=== PATIENT | male | born 1990 | race Caucasian/White ===

== ENCOUNTER 2019-10-13 00:20 | Emergency (ER) | payer OTHER ==
[~2019-10-13] VITALS: Ht 190.5 cm; Wt 86.4 kg
[2019-10-13] MEDS ORDERED: ACETAMINOPHEN 500 MG TABLET PO ONE (01:00)
[2019-10-13] MEDS ORDERED: HALOPERIDOL LACTATE 5 MG/ML VIAL IM ONE (01:00)
[2019-10-13] MEDS ORDERED: LORazepam 2 MG/ML VIAL IM ONE (01:00)
[2019-10-13 01:41] LABS: BASOPHILS % (AUTO) 0.3 % (0.0-2.0); EOSINOPHILS % (AUTO) 2.6 % (1.0-6.0); HEMATOCRIT 38.7 % (41-53); HEMOGLOBIN 13.3 g/dL (13.5-17.5); LYMPHOCYTES % (AUTO) 28.3 % (22.0-44.0); MEAN CORPUSCULAR HEMOGLOBIN 31.2 pg (26.0-34.0); MEAN CORPUSCULAR HGB CONC 34.3 G/dL (31.0-37.0); MEAN CORPUSCULAR VOLUME 91 fL (80-100); MONOCYTES % (AUTO) 14.5 % (2.0-9.0); NEUTROPHILS # (AUTO) 3.8 K/uL (1.8-7.7); NEUTROPHILS % (AUTO) 54.3 % (40.0-70.0); PLATELET COUNT (AUTO) 257 K/uL (150-450); RED BLOOD CELL COUNT(AUTO) 4.26 MIL/uL (4.50-5.90); RED CELL DISTRIBUTION WIDTH 12.9 % (11.5-14.5)
[2019-10-13 01:46] LABS: ANION GAP 13 mmol/L (8-16); CALCIUM, TOTAL 9.2 mg/dL (8.8-10.5); CARBON DIOXIDE 27 mmol/L (22-29); CHLORIDE 101 mmol/L (98-107); CREATININE 0.88 mg/dL (0.60-1.30); GLUCOSE,RANDOM 92 mg/dL (70-110); SODIUM SERUM 141 mmol/L (136-145); UREA NITROGEN, BLOOD 24 mg/dL (7-18)
[2019-10-13 01:49] LABS: GLOMERULAR FILTR. RATE CALC > 60 mL/min (>60)
[2019-10-13 01:53] LABS: ALANINE AMINOTRANSFERASE 57 U/L (12-78); ALBUMIN 4.3 g/dL (3.4-5.0); ALKALINE PHOSPHATASE 43 U/L (46-116); ASPARTATE AMINOTRANSFERASE 46 U/L (15-37); BILIRUBIN,TOTAL 1.4 mg/dL (0.1-1.0); TOTAL PROTEIN, SERUM 7.7 g/dL (6.4-8.2)
[2019-10-13 05:55] VITALS: BP 121/69
== END 2019-10-13 06:14 | disposition home or self-care (01) ==
LOC: EDBD 00:20 → EMS 00:20
DX: L55.9 Sunburn, unspecified (principal); F69 Unspecified disorder of adult personality and behavior; F15.10 Other stimulant abuse, uncomplicated
CPT/HCPCS: 36415; 80053; 85025; 96372; 99284; G0480; J1630; J2060

== ENCOUNTER 2019-10-13 08:08 | Emergency (ER) | payer OTHER ==
[~2019-10-13] VITALS: Ht 177.8 cm; Wt 77.3 kg
[2019-10-13 11:14] VITALS: BP 118/74
== END 2019-10-13 11:25 | disposition home or self-care (01) ==
LOC: EMS 08:11
DX: F41.9 Anxiety disorder, unspecified (principal); F17.210 Nicotine dependence, cigarettes, uncomplicated; F19.10 Other psychoactive substance abuse, uncomplicated
CPT/HCPCS: 99406

== ENCOUNTER 2021-10-05 09:33 | Inpatient (IN) | payer MEDICAID ==
[~2021-10-05] VITALS: Ht 188 cm; Wt 87.5 kg
[2021-10-05] MEDS ORDERED: LORazepam 2 MG TABLET PO PRN (10:30)
[2021-10-05] MEDS ORDERED: ZOLPIDEM TARTRATE 10 MG TABLET PO PRN (10:30)
[2021-10-05 13:00] VITALS: BP 106/78
[2021-10-05 16:10] VITALS: BP 110/68
[2021-10-05] MEDS: HALOPERIDOL 5 MG TABLET PO PRN (16:34)
[2021-10-06 00:30] VITALS: BP 112/67
[2021-10-06] MEDS: METHADONE HCL 10 MG TABLET PO SCH (08:47)
[2021-10-06 08:52] VITALS: BP 108/67
[2021-10-06] MEDS: HALOPERIDOL 5 MG TABLET PO PRN (13:44)
[2021-10-06 16:04] VITALS: BP 113/64
[2021-10-06] MEDS ORDERED: QUEtiapine FUMARATE 300 MG TABLET PO SCH (21:00)
[2021-10-06] MEDS ORDERED: DOCUSATE SODIUM 100 MG CAPSULE PO PRN (21:45)
[2021-10-06] MEDS ORDERED: CloNIDine HCL 0.1 MG TABLET PO PRN (21:45)
[2021-10-06] MEDS ORDERED: IBUPROFEN 600 MG TABLET PO PRN (21:45)
[2021-10-06] MEDS ORDERED: LOPERAMIDE HCL 2 MG CAPSULE PO PRN (21:45)
[2021-10-06] MEDS ORDERED: ONDANSETRON HCL 4 MG TABLET PO PRN (21:45)
[2021-10-06] MEDS ORDERED: PETROLATUM,WHITE 28 GM JELLY TP PRN (21:45)
[2021-10-06] MEDS ORDERED: MAGNESIUM HYDROXIDE SUSPENSION 30 ML UDCUP PO PRN (21:45)
[2021-10-06] MEDS ORDERED: BENZOCAINE/MENTHOL LOZENGE PO PRN (21:45)
[2021-10-06] MEDS ORDERED: BACITRACIN 28 GM OINTMENT TP PRN (21:45)
[2021-10-06] MEDS ORDERED: OMEPRAZOLE 20 MG CAPSULE PO PRN (21:45)
[2021-10-06] MEDS ORDERED: MAG HYDROX/AL HYDROX/SIMETH ES 30 ML SUSPENSION UDCUP PO PRN (21:45)
[2021-10-06] MEDS ORDERED: ACETAMINOPHEN 325 MG TABLET PO PRN (21:45)
[2021-10-06] MEDS ORDERED: ALBUTEROL SULFATE HFA 90 MCG/PUFF 8 GM INHALER IH PRN (21:45)
[2021-10-07 02:19] VITALS: BP 118/69
[2021-10-07] MEDS: METHADONE HCL 10 MG TABLET PO SCH (08:20)
[2021-10-07] MEDS: VENLAFAXINE HCL 75 MG ER CAPSULE PO SCH (08:20)
[2021-10-07 08:32] VITALS: BP 120/77
[2021-10-07] MEDS: HydrOXYzine PAMOATE 25 MG CAPSULE PO PRN (10:15)
[2021-10-07] MEDS: HALOPERIDOL 5 MG TABLET PO PRN (12:15)
[2021-10-07 16:29] VITALS: BP 105/64
[2021-10-07] MEDS: QUEtiapine FUMARATE 200 MG TABLET PO SCH (20:41)
[2021-10-08 01:14] VITALS: BP 101/67
[2021-10-08 07:32] LABS: APPEARANCE,URINE CLEAR (CLEAR); BILIRUBIN,URINE NEGATIVE (NEGATIVE); GLUCOSE, URINE (UA) NEGATIVE (NEGATIVE); KETONES,URINE NEGATIVE (NEGATIVE); LEUKOCYTE ESTERASE ,URINE NEGATIVE (NEGATIVE); NITRATE,URINE NEGATIVE (NEGATIVE); OCCULT BLOOD,URINE NEGATIVE (NEGATIVE); PH,URINE 6.5 (5.0-8.0); PROTEIN,URINE NEGATIVE (NEGATIVE); SPECIFIC GRAVITIY, URINE 1.009 (1.003-1.030); UROBILINOGEN,URINE <=1.0 mg/dL (<=1.0)
[2021-10-08 07:34] LABS: AMPHET/METH SCREEN,URINE NEGATIVE (NEGATIVE); BARBITURATE SCREEN, URINE NEGATIVE (NEGATIVE); BENZODIAZEPINES SCREEN,URINE NEGATIVE (NEGATIVE); CANNABINOID SCREEN,URINE POSITIVE (NEGATIVE); COCAINE SCREEN,URINE NEGATIVE (NEGATIVE); METHADONE SCREEN, URINE POSITIVE (NEGATIVE); OPIATE SCREEN,URINE NEGATIVE (NEGATIVE)
[2021-10-08 07:44] LABS: PHENCYCLIDINE SCREEN,URINE NEGATIVE (NEGATIVE)
[2021-10-08] MEDS: METHADONE HCL 10 MG TABLET PO SCH (08:29)
[2021-10-08] MEDS: VENLAFAXINE HCL 75 MG ER CAPSULE PO SCH (08:29)
[2021-10-08 08:42] VITALS: BP 115/86
[2021-10-08] MEDS: HydrOXYzine PAMOATE 25 MG CAPSULE PO PRN (10:16)
[2021-10-08] MEDS: HALOPERIDOL 5 MG TABLET PO PRN (16:42)
[2021-10-08] MEDS: QUEtiapine FUMARATE 200 MG TABLET PO SCH (20:31)
[2021-10-09 00:15] VITALS: BP 116/82
[2021-10-09 10:00] VITALS: BP 108/64
[2021-10-09] MEDS: VENLAFAXINE HCL 75 MG ER CAPSULE PO SCH (10:04)
[2021-10-09] MEDS: METHADONE HCL 10 MG TABLET PO SCH (10:04)
[2021-10-09 16:37] VITALS: BP 123/69
[2021-10-09] MEDS: HydrOXYzine PAMOATE 25 MG CAPSULE PO PRN (17:06)
[2021-10-09] MEDS: QUEtiapine FUMARATE 200 MG TABLET PO SCH (20:26)
[2021-10-10 01:11] VITALS: BP 121/72
[2021-10-10 08:22] VITALS: BP 124/79
[2021-10-10] MEDS: METHADONE HCL 10 MG TABLET PO SCH (09:00)
[2021-10-10] MEDS: VENLAFAXINE HCL 75 MG ER CAPSULE PO SCH (09:01)
[2021-10-10] MEDS ORDERED: VENL-67 PO (10:52)
[2021-10-10] MEDS ORDERED: QUET200T PO (10:52)
== END 2021-10-10 13:35 | disposition home or self-care (01) | DRG 750 ==
LOC: B2S 12:04
PROVIDERS: ADMIT Psychiatry & Neurology Psychiatry; ATTEND Psychiatry & Neurology Psychiatry
DX: F25.9 Schizoaffective disorder, unspecified (principal); F11.20 Opioid dependence, uncomplicated; F32.A Depression, unspecified; F41.9 Anxiety disorder, unspecified; G47.00 Insomnia, unspecified; K59.00 Constipation, unspecified; Z71.6 Tobacco abuse counseling; Z88.5 Allergy status to narcotic agent
CPT/HCPCS: 80307; 81003

== ENCOUNTER 2021-12-18 18:17 | Inpatient (IN) | payer MEDICAID ==
[~2021-12-18] VITALS: Ht 188 cm; Wt 82.4 kg
[~2021-12-18 18:17] MED LIST: QUET200T PO; VENL-67 PO
[2021-12-19 00:01] VITALS: BP 149/81
[2021-12-19] MEDS ORDERED: DOCUSATE SODIUM 100 MG CAPSULE PO PRN (07:00)
[2021-12-19] MEDS ORDERED: ALBUTEROL SULFATE HFA 90 MCG/PUFF 8 GM INHALER IH PRN (07:00)
[2021-12-19] MEDS ORDERED: ONDANSETRON HCL 4 MG TABLET PO PRN (07:00)
[2021-12-19] MEDS ORDERED: NICOTINE 14 MG/24 HOUR PATCH TD PRN (07:00)
[2021-12-19] MEDS ORDERED: IBUPROFEN 400 MG TABLET PO PRN (07:00)
[2021-12-19] MEDS ORDERED: CloNIDine HCL 0.1 MG TABLET PO PRN (07:00)
[2021-12-19] MEDS ORDERED: GuaiFENesin/D-METHORPHAN [SUGAR-FREE] 200-20MG/10 ML SYRUP UDCUP PO PRN (07:00)
[2021-12-19] MEDS ORDERED: PETROLATUM,WHITE 28 GM JELLY TP PRN (07:00)
[2021-12-19] MEDS ORDERED: MAG HYDROX/AL HYDROX/SIMETH ES 30 ML SUSPENSION UDCUP PO PRN (07:00)
[2021-12-19] MEDS ORDERED: LOPERAMIDE HCL 2 MG CAPSULE PO PRN (07:00)
[2021-12-19] MEDS ORDERED: MAGNESIUM HYDROXIDE SUSPENSION 30 ML UDCUP PO PRN (07:00)
[2021-12-19] MEDS ORDERED: ACETAMINOPHEN 325 MG TABLET PO PRN (07:00)
[2021-12-19] MEDS: SERTRALINE HCL 50 MG TABLET PO SCH (11:16)
[2021-12-19 11:23] VITALS: BP 142/77
[2021-12-19] MEDS: LORazepam 2 MG TABLET PO PRN ×2 (11:24→15:59)
[2021-12-19 11:25] VITALS: BP 142/77
[2021-12-19] MEDS: CEPHALEXIN MONOHYDRATE 500 MG CAPSULE PO SCH ×2 (13:47→17:16)
[2021-12-19] MEDS: SULFAMETHOX/TRIMETH DS 800-160 MG/TABLET PO SCH (17:16)
[2021-12-19] MEDS: LURASIDONE HCL 40 MG TABLET PO SCH (17:16)
[2021-12-19] MEDS: NEOMYCIN/BACITRACIN/POLYMYXIN B 30 GM OINTMENT TP SCH (17:17)
[2021-12-19 20:07] VITALS: BP 138/83
[2021-12-20] MEDS: LORazepam 2 MG TABLET PO PRN ×4 (03:48→17:49)
[2021-12-20 03:51] VITALS: BP 127/76
[2021-12-20] MEDS: LURASIDONE HCL 40 MG TABLET PO SCH ×2 (06:13→16:33)
[2021-12-20] MEDS: SERTRALINE HCL 50 MG TABLET PO SCH (08:02)
[2021-12-20] MEDS: SULFAMETHOX/TRIMETH DS 800-160 MG/TABLET PO SCH ×2 (08:02→16:33)
[2021-12-20] MEDS: NEOMYCIN/BACITRACIN/POLYMYXIN B 30 GM OINTMENT TP SCH ×2 (08:02→16:34)
[2021-12-20] MEDS: CEPHALEXIN MONOHYDRATE 500 MG CAPSULE PO SCH ×3 (08:02→16:33)
[2021-12-20 08:30] VITALS: BP 107/70
[2021-12-20 10:09] LABS: BASOPHILS % (AUTO) 0.3 % (0.0-2.0); EOSINOPHILS % (AUTO) 2.2 % (1.0-6.0); HEMATOCRIT 40.7 % (41-53); HEMOGLOBIN 13.8 g/dL (13.5-17.5); LYMPHOCYTES # (AUTO) 1.7 K/uL (1.0-4.8); LYMPHOCYTES % (AUTO) 27.3 % (22.0-44.0); MEAN CORPUSCULAR HGB CONC 33.9 G/dL (31.0-37.0); MEAN CORPUSCULAR VOLUME 92 fL (80-100); MONOCYTES # (AUTO) 0.5 K/uL (0.1-1.0); MONOCYTES % (AUTO) 8.6 % (2.0-9.0); NEUTROPHILS # (AUTO) 3.9 K/uL (1.8-7.7); NEUTROPHILS % (AUTO) 61.6 % (40.0-70.0); PLATELET COUNT (AUTO) 332 K/uL (150-450); RED BLOOD CELL COUNT(AUTO) 4.44 MIL/uL (4.50-5.90); RED CELL DISTRIBUTION WIDTH 13.8 % (11.5-14.5)
[2021-12-20 10:50] LABS: ALANINE AMINOTRANSFERASE 33 U/L (12-78); ALKALINE PHOSPHATASE 56 U/L (46-116); ANION GAP 5 mmol/L (8-16); ASPARTATE AMINOTRANSFERASE 15 U/L (15-37); BILIRUBIN,TOTAL 0.2 mg/dL (0.1-1.0); CALCIUM, TOTAL 8.8 mg/dL (8.8-10.5); CARBON DIOXIDE 30 mmol/L (22-29); CHLORIDE 104 mmol/L (98-107); CHOL/HDL RATIO 3.1 (4.2-7.3); CHOLESTEROL 120 mg/dL (131-200); FREE T4 (FREE THYROXINE) 1.35 ng/dL (0.76-1.46); GLUCOSE,RANDOM 72 mg/dL (70-110); HDL CHOLESTEROL 39 mg/dL (40-60); LDL CHOL (CALC.) 62 mg/dL (0-130); POTASSIUM 4.2 mmol/L (3.5-5.1); SODIUM SERUM 139 mmol/L (136-145); THYROID STIMULATING HORMONE 0.44 uIU/mL (0.36-3.74); TOTAL PROTEIN, SERUM 6.7 g/dL (6.4-8.2); TRIGLYCERIDES 93 mg/dL (15-150); UREA NITROGEN, BLOOD 10 mg/dL (7-18)
[2021-12-20 10:53] LABS: GLOMERULAR FILTR. RATE CALC > 60 mL/min (>60)
[2021-12-20 12:33] LABS: HEMOGLOBIN A1C 5.1 % (3.8-5.6)
[2021-12-20 21:22] VITALS: BP 123/72
[2021-12-21 01:37] VITALS: BP 118/72
[2021-12-21] MEDS: ZOLPIDEM TARTRATE 10 MG TABLET PO PRN ×2 (01:39→23:49)
[2021-12-21] MEDS: LURASIDONE HCL 40 MG TABLET PO SCH ×2 (05:56→16:43)
[2021-12-21 08:23] VITALS: BP 117/76
[2021-12-21] MEDS: SERTRALINE HCL 50 MG TABLET PO SCH (08:28)
[2021-12-21] MEDS: SULFAMETHOX/TRIMETH DS 800-160 MG/TABLET PO SCH ×2 (08:28→16:43)
[2021-12-21] MEDS: CEPHALEXIN MONOHYDRATE 500 MG CAPSULE PO SCH ×3 (08:28→16:43)
[2021-12-21] MEDS: LORazepam 2 MG TABLET PO PRN ×2 (08:29→15:22)
[2021-12-21] MEDS: NEOMYCIN/BACITRACIN/POLYMYXIN B 30 GM OINTMENT TP SCH ×2 (08:29→16:43)
[2021-12-21] MEDS: HALOPERIDOL 5 MG TABLET PO PRN (19:06)
[2021-12-21 20:12] VITALS: BP 109/65
[2021-12-22] VITALS: BP 114/82
[2021-12-22] MEDS: LURASIDONE HCL 40 MG TABLET PO SCH ×2 (06:14→17:03)
[2021-12-22] MEDS: LORazepam 2 MG TABLET PO PRN ×3 (06:35→17:09)
[2021-12-22 06:38] VITALS: BP 112/86
[2021-12-22 08:12] VITALS: BP 114/69
[2021-12-22] MEDS: CEPHALEXIN MONOHYDRATE 500 MG CAPSULE PO SCH ×3 (08:35→17:03)
[2021-12-22] MEDS: SULFAMETHOX/TRIMETH DS 800-160 MG/TABLET PO SCH ×2 (08:35→17:03)
[2021-12-22] MEDS: SERTRALINE HCL 50 MG TABLET PO SCH (08:35)
[2021-12-22] MEDS: NEOMYCIN/BACITRACIN/POLYMYXIN B 30 GM OINTMENT TP SCH ×2 (08:36→17:03)
[2021-12-22] MEDS: HALOPERIDOL 5 MG TABLET PO PRN (10:56)
[2021-12-22] MEDS: VENLAFAXINE HCL 150 MG ER CAPSULE PO SCH (13:06)
[2021-12-22 17:09] VITALS: BP 121/71
[2021-12-23] MEDS: LURASIDONE HCL 40 MG TABLET PO SCH ×2 (06:31→17:05)
[2021-12-23] MEDS: SULFAMETHOX/TRIMETH DS 800-160 MG/TABLET PO SCH ×2 (08:34→17:05)
[2021-12-23] MEDS: VENLAFAXINE HCL 150 MG ER CAPSULE PO SCH (08:35)
[2021-12-23] MEDS: NEOMYCIN/BACITRACIN/POLYMYXIN B 30 GM OINTMENT TP SCH ×2 (08:35→17:06)
[2021-12-23] MEDS: CEPHALEXIN MONOHYDRATE 500 MG CAPSULE PO SCH ×3 (08:35→17:04)
[2021-12-23] MEDS: HALOPERIDOL 5 MG TABLET PO PRN ×2 (08:42→14:14)
[2021-12-23] MEDS: LORazepam 2 MG TABLET PO PRN ×2 (08:42→14:14)
[2021-12-23 08:47] VITALS: BP 112/82
[2021-12-23 11:06] LABS: GLUCOMETER DEV NAME(LOC) POC.BV
[2021-12-23] MEDS: ZOLPIDEM TARTRATE 10 MG TABLET PO PRN (20:02)
[2021-12-23 20:10] VITALS: BP 125/67
[2021-12-24] MEDS: LURASIDONE HCL 40 MG TABLET PO SCH (06:42)
[2021-12-24] MEDS: CEPHALEXIN MONOHYDRATE 500 MG CAPSULE PO SCH ×3 (08:16→16:28)
[2021-12-24] MEDS: VENLAFAXINE HCL 150 MG ER CAPSULE PO SCH (08:16)
[2021-12-24] MEDS: SULFAMETHOX/TRIMETH DS 800-160 MG/TABLET PO SCH ×2 (08:16→16:28)
[2021-12-24] MEDS: NEOMYCIN/BACITRACIN/POLYMYXIN B 30 GM OINTMENT TP SCH ×2 (08:22→16:28)
[2021-12-24 08:35] VITALS: BP 104/63
[2021-12-24] MEDS: LORazepam 2 MG TABLET PO PRN ×2 (08:48→14:18)
[2021-12-24] MEDS: QUEtiapine FUMARATE 200 MG TABLET PO SCH ×2 (10:38→20:19)
[2021-12-24 20:13] VITALS: BP 135/66
[2021-12-25 08:13] VITALS: BP 119/76
[2021-12-25] MEDS: VENLAFAXINE HCL 150 MG ER CAPSULE PO SCH (09:04)
[2021-12-25] MEDS: CEPHALEXIN MONOHYDRATE 500 MG CAPSULE PO SCH ×3 (09:04→16:39)
[2021-12-25] MEDS: NEOMYCIN/BACITRACIN/POLYMYXIN B 30 GM OINTMENT TP SCH ×2 (09:05→16:41)
[2021-12-25] MEDS: QUEtiapine FUMARATE 200 MG TABLET PO SCH ×2 (09:05→20:31)
[2021-12-25] MEDS: SULFAMETHOX/TRIMETH DS 800-160 MG/TABLET PO SCH ×2 (09:05→16:39)
[2021-12-25] MEDS: HALOPERIDOL 5 MG TABLET PO PRN (10:15)
[2021-12-25] MEDS: LORazepam 2 MG TABLET PO PRN ×2 (10:15→14:18)
[2021-12-25 20:12] VITALS: BP 104/69
[2021-12-26 08:10] VITALS: BP 113/66
[2021-12-26] MEDS: VENLAFAXINE HCL 150 MG ER CAPSULE PO SCH (08:46)
[2021-12-26] MEDS: QUEtiapine FUMARATE 200 MG TABLET PO SCH ×2 (08:46→20:28)
[2021-12-26] MEDS: CEPHALEXIN MONOHYDRATE 500 MG CAPSULE PO SCH ×3 (08:46→16:33)
[2021-12-26] MEDS: SULFAMETHOX/TRIMETH DS 800-160 MG/TABLET PO SCH ×2 (08:46→16:33)
[2021-12-26] MEDS: NEOMYCIN/BACITRACIN/POLYMYXIN B 30 GM OINTMENT TP SCH ×2 (08:47→16:35)
[2021-12-26] MEDS: LORazepam 2 MG TABLET PO PRN ×2 (10:08→14:49)
[2021-12-26] MEDS: HALOPERIDOL 5 MG TABLET PO PRN (14:49)
[2021-12-26 20:18] VITALS: BP 112/64
[2021-12-27 06:42] VITALS: BP 108/72
[2021-12-27] MEDS: LORazepam 2 MG TABLET PO PRN (06:50)
[2021-12-27 08:36] VITALS: BP 109/69
[2021-12-27] MEDS: SULFAMETHOX/TRIMETH DS 800-160 MG/TABLET PO SCH (09:07)
[2021-12-27] MEDS: CEPHALEXIN MONOHYDRATE 500 MG CAPSULE PO SCH ×2 (09:07→12:58)
[2021-12-27] MEDS: QUEtiapine FUMARATE 200 MG TABLET PO SCH (09:07)
[2021-12-27] MEDS: VENLAFAXINE HCL 150 MG ER CAPSULE PO SCH (09:07)
[2021-12-27] MEDS: NEOMYCIN/BACITRACIN/POLYMYXIN B 30 GM OINTMENT TP SCH (09:08)
[2021-12-27] MEDS ORDERED: QUET200T30 PO (11:52)
[2021-12-27] MEDS ORDERED: VENL150C4 PO (11:52)
[2021-12-27] MEDS ORDERED: QUET200T PO (12:03)
[2021-12-27] MEDS ORDERED: VENL-68 PO (12:06)
== END 2021-12-27 13:20 | disposition home or self-care (01) | DRG 750 ==
LOC: B2S 21:01
PROVIDERS: ADMIT Psychiatry & Neurology Child & Adolescent Psychiatry; ATTEND Psychiatry & Neurology Child & Adolescent Psychiatry
DX: F25.1 Schizoaffective disorder, depressive type (principal); F10.10 Alcohol abuse, uncomplicated; F12.10 Cannabis abuse, uncomplicated; F41.9 Anxiety disorder, unspecified; R03.0 Elevated blood-pressure reading, without diagnosis of hypertension; Z20.822 Contact with and (suspected) exposure to COVID-19; Z59.00 Homelessness unspecified; Z79.899 Other long term (current) drug therapy; Z88.8 Allergy status to other drugs, medicaments and biological substances
CPT/HCPCS: 80053; 80061; 83036; 84439; 84443; 85025

== ENCOUNTER 2023-06-07 00:40 | Inpatient (IN) | payer MEDICAID ==
[~2023-06-07] VITALS: Ht 188 cm; Wt 82.4 kg
[~2023-06-07 00:40] MED LIST changes: -QUET200T PO; +QUET200T30 PO; -VENL-67 PO; +VENL-68 PO; +VENL150C5 PO
[2023-06-07] MEDS ORDERED: ZOLPIDEM TARTRATE 10 MG TABLET PO PRN (03:00)
[2023-06-07 04:20] VITALS: BP 139/89; PULSE 99; RESP 20; TEMP 97.7; O2SAT 98
[2023-06-07] MEDS ORDERED: INFLUENZA VIRUS VACCINE QVS 2023-24 (6MO+)/PF 60 MCG/0.5 ML SYRINGE IM. ONE (04:45)
[2023-06-07] MEDS: LORazepam 2 MG TABLET PO PRN ×2 (07:11→16:22)
[2023-06-07] MEDS ORDERED: DOCUSATE SODIUM 100 MG CAPSULE PO PRN (07:15)
[2023-06-07] MEDS ORDERED: ONDANSETRON HCL 4 MG TABLET PO PRN (07:15)
[2023-06-07] MEDS ORDERED: IBUPROFEN 600 MG TABLET PO PRN (07:15)
[2023-06-07] MEDS ORDERED: BACITRACIN 28 GM OINTMENT TP PRN (07:15)
[2023-06-07] MEDS ORDERED: OMEPRAZOLE 20 MG CAPSULE PO PRN (07:15)
[2023-06-07] MEDS ORDERED: ACETAMINOPHEN 325 MG TABLET PO PRN (07:15)
[2023-06-07] MEDS ORDERED: MAG HYDROX/ALUMINUM HYD/SIMETH ES 30 ML SUSPENSION UDCUP PO PRN (07:15)
[2023-06-07] MEDS ORDERED: CloNIDine HCL 0.1 MG TABLET PO PRN (07:15)
[2023-06-07] MEDS ORDERED: ALBUTEROL SULFATE HFA 90 MCG/PUFF 8 GM INHALER IH PRN (07:15)
[2023-06-07] MEDS ORDERED: LOPERAMIDE HCL 2 MG CAPSULE PO PRN (07:15)
[2023-06-07] MEDS ORDERED: PETROLATUM,WHITE 28 GM JELLY TP PRN (07:15)
[2023-06-07] MEDS ORDERED: BENZOCAINE/MENTHOL LOZENGE PO PRN (07:15)
[2023-06-07] MEDS ORDERED: MAGNESIUM HYDROXIDE SUSPENSION 30 ML UDCUP PO PRN (07:15)
[2023-06-07 17:52] VITALS: BP 130/80; PULSE 90; RESP 20; TEMP 97.6; O2SAT 97
[2023-06-07] MEDS: BACITRACIN 28 GM OINTMENT TP SCH (19:14)
[2023-06-07 20:06] VITALS: RESP 17
[2023-06-07] MEDS: QUEtiapine FUMARATE 300 MG TABLET PO SCH (20:18)
[2023-06-08] MEDS: LORazepam 2 MG TABLET PO PRN ×2 (00:57→10:17)
[2023-06-08] MEDS: SULFAMETHOX/TRIMETH DS 800-160 MG/TABLET PO SCH ×2 (08:17→16:49)
[2023-06-08] MEDS: BACITRACIN 28 GM OINTMENT TP SCH ×2 (08:22→16:52)
[2023-06-08 10:22] VITALS: BP 144/98; PULSE 103; RESP 18; TEMP 98; O2SAT 98
[2023-06-08] MEDS: MAGNESIUM SULFATE 454 GM BAG TP SCH (12:29)
[2023-06-08] MEDS: HALOPERIDOL 5 MG TABLET PO PRN (13:01)
[2023-06-08] MEDS: QUEtiapine FUMARATE 300 MG TABLET PO SCH (20:10)
[2023-06-08 22:06] VITALS: BP 128/70; PULSE 75; RESP 18; TEMP 98.1; O2SAT 99
[2023-06-09 08:10] VITALS: BP 133/77; PULSE 103; RESP 17; TEMP 98.4; O2SAT 98
[2023-06-09] MEDS: SULFAMETHOX/TRIMETH DS 800-160 MG/TABLET PO SCH ×2 (08:18→16:37)
[2023-06-09] MEDS: LORazepam 2 MG TABLET PO PRN ×2 (08:19→13:38)
[2023-06-09] MEDS: MAGNESIUM SULFATE 454 GM BAG TP SCH (09:00)
[2023-06-09] MEDS: BACITRACIN 28 GM OINTMENT TP SCH ×2 (09:46→16:37)
[2023-06-09] MEDS: HALOPERIDOL 5 MG TABLET PO PRN (13:38)
[2023-06-09] MEDS: QUEtiapine FUMARATE 300 MG TABLET PO SCH (20:30)
[2023-06-09 21:38] VITALS: BP 0/0; PULSE 86; RESP 18; TEMP 97.9; O2SAT 98
[2023-06-10 01:12] VITALS: BP 134/81; PULSE 102; RESP 18; TEMP 98.5
[2023-06-10] MEDS: HALOPERIDOL 5 MG TABLET PO PRN ×2 (01:21→11:10)
[2023-06-10] MEDS: LORazepam 2 MG TABLET PO PRN ×2 (01:21→11:11)
[2023-06-10 08:50] VITALS: TEMP 97.7
[2023-06-10] MEDS: BACITRACIN 28 GM OINTMENT TP SCH ×2 (09:00→11:15)
[2023-06-10] MEDS: SULFAMETHOX/TRIMETH DS 800-160 MG/TABLET PO SCH ×2 (09:00→11:14)
[2023-06-10] MEDS: MAGNESIUM SULFATE 454 GM BAG TP SCH ×2 (09:00→11:16)
[2023-06-10] MEDS ORDERED: QUET300T2 PO (13:48)
[2023-06-10] MEDS ORDERED: BACTDSB PO (13:50)
== END 2023-06-10 16:36 | disposition home or self-care (01) | DRG 750 ==
LOC: B2S 02:52
PROVIDERS: ADMIT Psychiatry & Neurology Psychiatry; ATTEND Psychiatry & Neurology Psychiatry
DX: F25.1 Schizoaffective disorder, depressive type (principal); R45.851 Suicidal ideations; K59.00 Constipation, unspecified; G47.00 Insomnia, unspecified; Z20.822 Contact with and (suspected) exposure to COVID-19; F12.10 Cannabis abuse, uncomplicated; F41.9 Anxiety disorder, unspecified; F11.20 Opioid dependence, uncomplicated; Z63.4 Disappearance and death of family member; Z59.00 Homelessness unspecified
CPT/HCPCS: Z7610